=== PATIENT | male | born 1975 | race Caucasian/White ===

== ENCOUNTER 2016-12-15 13:48 | Outpatient (CLI) | payer BC ==
--- NOTE | 2016-12-15 15:08 | Diagnostic Imaging Report ---
Indication: COUGH Technique: 2 views of the chest Comparison: none. Findings: Lungs and pleural spaces are clear. Heart size is normal. Bones are unremarkable.. Impression: No acute process
== END 2016-12-15 15:48 | disposition home or self-care (01) ==
LOC: RAD 13:48
DX: R05 Cough (principal)
CPT/HCPCS: 71020